=== PATIENT | male | born 1955 | race Asian ===

== ENCOUNTER → 2018-03-11 | Outpatient (CLI) | payer MEDICARE, OTHER | END | disposition home or self-care (01) | LOC: RADPV 12:47 | PROVIDERS: ATTEND Family Medicine | DX: M25.561 Pain in right knee (principal); M25.562 Pain in left knee; M54.2 Cervicalgia; M54.5 Low back pain | CPT/HCPCS: 72040; 72100 ==

== ENCOUNTER 2022-05-17 15:14 | Emergency (ER) | payer MEDICARE, OTHER ==
[~2022-05-17] VITALS: Ht 162.6 cm; Wt 75.9 kg
[~2022-05-17 15:14] MED LIST: AMLO-257 PO; ATOR20TA86 PO; LISI-892 PO; LOSA-382 PO; METF-1211 PO; TRAM50TA4 PO
[2022-05-17] MEDS ORDERED: SILD25 PO (15:46)
[2022-05-17] MEDS ORDERED: TRAZ150T80 PO (15:46)
[2022-05-17] MEDS ORDERED: HYDR-4584 PO (15:46)
[2022-05-17] MEDS ORDERED: MELA5TAB40 PO (15:46)
[2022-05-17] MEDS ORDERED: GABA-1181 PO (15:46)
[2022-05-17] MEDS ORDERED: DULO-114 PO (15:46)
[2022-05-17] MEDS ORDERED: INDO-16 PO (17:01)
[2022-05-17] MEDS ORDERED: COLC0.6T73 PO (17:01)
[2022-05-17 17:18] VITALS: BP 151/97
== END 2022-05-17 17:29 | disposition home or self-care (01) ==
LOC: EMS 15:14
DX: M10.9 Gout, unspecified (principal); M19.90 Unspecified osteoarthritis, unspecified site; E11.9 Type 2 diabetes mellitus without complications; E78.00 Pure hypercholesterolemia, unspecified; I10 Essential (primary) hypertension; Z87.39 Personal history of other diseases of the musculoskeletal system and connective tissue
CPT/HCPCS: 99283; Z7502

== ENCOUNTER 2023-11-05 13:11 | Emergency (ER) | payer MEDICARE, OTHER ==
[~2023-11-05] VITALS: Ht 167.6 cm; Wt 70.5 kg
[~2023-11-05 13:11] MED LIST changes: +ATOR20TA PO; -ATOR20TA86 PO; +COLC0.6T73 PO; +DULO-114 PO; +GABA-1181 PO; +HYDR-4584 PO; +INDO-16 PO; -LISI-892 PO; +MELA5TAB40 PO; +SILD25 PO; +TRAM-559 PO; -TRAM50TA4 PO; +TRAZ150T80 PO
[2023-11-05 13:31] VITALS: TEMP 99.6
[2023-11-05 13:47] LABS: GLUCOMETER DEV NAME(LOC) ERT.5; GLUCOSE,POINT OF CARE 125 MG/DL (70-110)
[2023-11-05 14:32] LABS: INFLUENZA A-RTPCR,COMBO NEGATIVE FOR FLU A (NEGATIVE); INFLUENZA B-RTPCR,COMBO NEGATIVE FOR FLU B (NEGATIVE); RESPIRATORY SYNCYTIAL VRS-PCR NEGATIVE (NEGATIVE); SARS COVID19 RTPCR, COMBO NEGATIVE (NEGATIVE)
[2023-11-05] MEDS ORDERED: OXYM15SP57 NASAL (15:03)
[2023-11-05] MEDS ORDERED: FLUT15.812 NASAL (15:04)
[2023-11-05 15:08] VITALS: BP 136/58; PULSE 64; RESP 16
== END 2023-11-05 15:17 | disposition home or self-care (01) ==
LOC: EMS 13:22
DX: J06.9 Acute upper respiratory infection, unspecified (principal); M19.90 Unspecified osteoarthritis, unspecified site; E11.9 Type 2 diabetes mellitus without complications; E78.00 Pure hypercholesterolemia, unspecified; I10 Essential (primary) hypertension; Z98.890 Other specified postprocedural states; Z20.822 Contact with and (suspected) exposure to COVID-19
CPT/HCPCS: 99283; 0241U; 82962

== ENCOUNTER 2024-11-01 10:21 | Emergency (ER) | payer MEDICARE, OTHER ==
[~2024-11-01] VITALS: Ht 167.6 cm; Wt 72.0 kg
[~2024-11-01 10:21] MED LIST changes: +COLC-3 PO; -COLC0.6T73 PO; +FLUT15.812 NASAL; +OXYM15SP63 NASAL; -TRAM-559 PO; +TRAM50TA5 PO
[2024-11-01 10:30] VITALS: BP 142/54; PULSE 90; RESP 16; TEMP 98.3; O2SAT 98
[2024-11-01] MEDS ORDERED: COLC-3 PO (11:18)
[2024-11-01] MEDS ORDERED: INDO50CA97 PO (11:18)
[2024-11-01] MEDS: COLCHICINE 0.6 MG TABLET PO ONE (11:59)
[2024-11-01] MEDS: OxyCODONE HCL/ACETAMINOPHEN 5-325 MG TABLET PO ONE (11:59)
[2024-11-01] MEDS: INDOMETHACIN 50 MG CAPSULE PO ONE (11:59)
== END 2024-11-01 12:00 | disposition home or self-care (01) ==
LOC: EMS 10:21
DX: M10.072 Idiopathic gout, left ankle and foot (principal); E11.9 Type 2 diabetes mellitus without complications; E78.00 Pure hypercholesterolemia, unspecified; I10 Essential (primary) hypertension; Z79.899 Other long term (current) drug therapy; Z98.890 Other specified postprocedural states
CPT/HCPCS: 82962; 99284